=== PATIENT | female | born 1995 | race African-American/Black ===

== ENCOUNTER 2023-04-22 21:53 | Emergency (ER) | payer OTHER ==
[~2023-04-22] VITALS: Ht 172.7 cm; Wt 72.0 kg
[2023-04-22 21:57] VITALS: BP 110/68; PULSE 80; RESP 18; O2SAT 98
[2023-04-22] MEDS ORDERED: ERYT1OIN6 RIGHTEYE ×2 (23:48)
[2023-04-22] MEDS ORDERED: ERYT1OIN6 LEFTEYE (23:48)
== END 2023-04-23 00:15 | disposition home or self-care (01) ==
LOC: ER 21:53
DX: H10.9 Unspecified conjunctivitis (principal)
CPT/HCPCS: 99283

== ENCOUNTER 2024-08-30 15:45 | Emergency (ER) | payer OTHER ==
[~2024-08-30] VITALS: Ht 175.3 cm; Wt 73.0 kg
[~2024-08-30 15:45] MED LIST: ERYT1OIN6 LEFTEYE
[2024-08-30 16:15] VITALS: O2SAT 99
[2024-08-30 17:28] LABS: BASOPHILS % 0.2 % (0.0-2.0); EOSINOPHILS % 0.3 % (0.0-5.0); HEMATOCRIT. 40.1 % (36.0-48.0); HEMOGLOBIN. 13.6 g/dL (12.0-16.0); LYMPHOCYTES % 8.3 % (20.0-50.0); MEAN CORPUSCULAR HGB CONC 33.9 g/dL (31.0-37.0); MEAN CORPUSCULAR VOLUME 91.3 fL (81.0-99.0); MEAN PLATELET VOLUME 11.1 fl (7.4-10.4); MONOCYTES % 5.2 % (2.0-8.0); PLATELET 151 x1000/uL (130-400); RED BLOOD CELL COUNT 4.39 mill/uL (4.2-5.4); RED CELL DISTRIBUTION WIDTH 13.5 % (11.6-14.6); WHITE BLOOD COUNT 5.5 x1000/uL (4.5-11.0)
[2024-08-30 17:32] LABS: CARBON DIOXIDE 25 mEq/L (21-32); CHLORIDE 105 mEq/L (98-107); POTASSIUM 3.8 mEq/L (3.5-5.1); SODIUM 139 mEq/L (136-145)
[2024-08-30 17:33] LABS: CALCIUM 9.2 mg/dL (8.7-10.4); HCG SCREEN NEGATIVE
[2024-08-30 17:37] LABS: CREATININE 0.8 mg/dL (0.6-1.0)
[2024-08-30 17:38] LABS: GLUCOSE 101 mg/dL (70-105); UREA NITROGEN BLOOD 10 mg/dL (9-23)
[2024-08-30 17:39] LABS: ALANINE AMINOTRANSFERASE 8 IU/L (10-49); ASPARTATE AMINOTRANSFERASE 16 IU/L (<34)
[2024-08-30 17:40] LABS: ALBUMIN 4.5 g/dL (3.2-4.8); BILIRUBIN DIRECT 0.7 mg/dL (<=3.0); BILIRUBIN TOTAL 2.1 mg/dL (0.1-1.0); PROTEIN TOTAL 7.4 g/dL (6.0-8.3)
[2024-08-30 20:06] LABS: GLUCOSE URINE NEGATIVE (NEGATIVE); KETONES URINE 1+ (NEGATIVE)
[2024-08-30 20:24] LABS: CLARITY URINE HAZY (CLEAR); COLOR URINE DARK YELLOW (YELLOW)
[2024-08-30 20:25] LABS: LEUKOCYTE ESTERASE URINE TRACE (NEGATIVE); NITRITE URINE NEGATIVE (NEGATIVE); OCCULT BLOOD URINE NEGATIVE (NEGATIVE); PH URINE 5.5 (4.5-8.0); PROTEIN URINE TRACE (NEGATIVE); SPECIFIC GRAVITY URINE 1.034 (1.005-1.030)
[2024-08-30 20:26] LABS: UCG KIT LOT# 865648; UCG SCREEN NEGATIVE
[2024-08-30 20:47] LABS: BACTERIA URINE 3+; RBC URINE 0-2 /hpf (0-2); SQUAMOUS EPITHELIAL CELL URINE FEW /lpf (RARE/1+); WBC URINE 0-2 /hpf (0-2)
[2024-08-30 20:48] LABS: MUCUS URINE 2+ /lpf (< = 2+)
[2024-08-30] MEDS ORDERED: ONDA4TAB50 MT (20:54)
[2024-08-30] MEDS ORDERED: FLUT9.9S BOTHNSTRLS (20:54)
[2024-08-30] MEDS ORDERED: TOPUD MT (20:54)
[2024-08-30] MEDS ORDERED: IBUP-1523 MT (20:54)
[2024-08-30] MEDS ORDERED: AZIT250T12 MT (20:54)
[2024-08-30] MEDS: ONDANSETRON 4MG ODT PO ONE (21:18)
[2024-08-30 21:19] VITALS: BP 115/71; PULSE 100; RESP 18; TEMP 37.00296; O2SAT 100
== END 2024-08-30 22:04 | disposition home or self-care (01) ==
LOC: ER 15:45
DX: J01.90 Acute sinusitis, unspecified (principal); Z79.899 Other long term (current) drug therapy
CPT/HCPCS: 99283; 80076; 80048; 81003; 81025; 84703; 83690; 85025; 36415; Q0162

== ENCOUNTER 2025-03-24 13:11 | Emergency (ER) | payer MEDICAID, OTHER ==
[~2025-03-24] VITALS: Ht 172.7 cm; Wt 80.0 kg
[~2025-03-24 13:11] MED LIST changes: +AZIT250T12 MT; +FLUT9.9S BOTHNSTRLS; +IBUP-1523 MT; +ONDA4TAB50 MT; +TOPUD MT
[2025-03-24 13:14] VITALS: O2SAT 99
[2025-03-24 13:30] VITALS: BP 125/75; PULSE 87; RESP 16; TEMP 37; O2SAT 99
[2025-03-24] MEDS ORDERED: ACETAMINOPHEN 325MG TABLET PO ONE (14:30)
[2025-03-25] MEDS ORDERED: ACET-2708 MT (12:58)
[2025-03-25] MEDS ORDERED: LIDO-53 TP (12:58)
== END 2025-03-24 14:44 | disposition left against medical advice (07) ==
LOC: ER 13:11
DX: R51.9 Headache, unspecified (principal); Z79.899 Other long term (current) drug therapy
CPT/HCPCS: 99281; 99282

== ENCOUNTER 2025-03-25 12:23 | Emergency (ER) | payer MEDICAID, OTHER ==
[~2025-03-25] VITALS: Ht 172.7 cm; Wt 75.0 kg
[2025-03-25 12:38] VITALS: O2SAT 100
[2025-03-25] MEDS: ACETAMINOPHEN 500MG TABLET PO ONE (12:57)
[2025-03-25] MEDS ORDERED: LIDO-53 TP (12:58)
[2025-03-25] MEDS ORDERED: ACET-2708 MT (12:58)
[2025-03-25 13:27] VITALS: BP 112/70; PULSE 79; RESP 16; TEMP 36.4; O2SAT 100
== END 2025-03-25 13:28 | disposition home or self-care (01) ==
LOC: ER 12:23
DX: M54.50 Low back pain, unspecified (principal); Z79.899 Other long term (current) drug therapy; Z98.890 Other specified postprocedural states; V49.40XA Driver injured in collision with unspecified motor vehicles in traffic accident, initial encounter; Y93.89 Activity, other specified; Y92.89 Other specified places as the place of occurrence of the external cause; Y99.8 Other external cause status
CPT/HCPCS: 99283